=== PATIENT | male | born 1970 | race Caucasian/White ===

== ENCOUNTER 2017-12-01 17:33 | Emergency (ER) | payer SELFPAY ==
[2017-12-01] MEDS ORDERED: chlordiazePOXIDE 25 MG CAP PO ONE ×2 (17:54→22:40)
[2017-12-01] MEDS ORDERED: ONDANSETRON DISINTEGRATING 4 MG TAB PO ONE (17:55)
--- NOTE | 2017-12-01 18:03 | EDPHY ---
General - History Smoking Status: Never smoked Narrative: 1:00 a.m.- [facility] has evaluated the patient for placement. Unfortunately, the patient's ALT and AST are slightly elevated which I attribute to his alcohol use. However, [facility] will not accept the patient with values greater than 200. Thus, the patient cannot be directly accepted. He will need to have labs demonstrating improving liver function. He could possibly return to the emergency room for repeat AST and ALT and if they are less than 200, could be placed in [facility]. However, day that have is provided information for outpatient admission there. We will send the patient home with [facility]. The patient and his are and in agreement with this plan. (Diane Clemens) CHIEF COMPLAINT: Alcohol dependence, wanting detox HISTORY OF PRESENT ILLNESS: The patient presents with his spouse with complaints of wanting detox. He complains of 1 year duration of alcohol abuse and dependency. He says he was a social drinker and with increasing anxiety is in his work life he began drinking more heavily at that time. He has at least 4-5 drinks of vodka per day for the past 1 year. It has been increasing recently and varies. On Monday he was charged with a DUI and made the decision is time for him to stop drinking. However he has been unable to find help. He and his spouse had made multiple phone calls. The ultimately ended up at the crisis Center last night the [facility] this morning. He left the [facility] and walked to [facility] and began drinking again. He last had alcohol 2:30 p.m.. He is here asking for detox. He denies any suicidality. He denies any ingestion of any other substances or drugs. No other associated complaints or modifying factors. REVIEW OF SYSTEMS: Ten systems reviewed and are negative unless otherwise noted in the HPI PCP: None currently. Recently switched insurances and is looking for primary care physician SPECIALISTS: None PAST MEDICAL HISTORY: No significant medical history PAST SURGICAL HISTORY: No recent surgeries SOCIAL HISTORY: Nonsmoker. No drug use. Alcohol as above. 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 Lives in [place] with his spouse FAMILY HISTORY: Noncontributory EXAMINATION General Appearance: Alert, no distress, calm and cooperative Head: normocephalic, atraumatic Eyes: Pupils equal and round, no conjunctival pallor or injection ENT, Mouth: Mucous membranes moist. Airway patent Neck: Normal inspection, supple, non-tender Respiratory: Lungs are clear to auscultation Cardiovascular: Regular rate and rhythm. No murmur Gastrointestinal: Abdomen is soft and nontender Back: non-tender, no bony abnormalities Neurological: GCS 15. Cranial nerves 2-12 grossly intact. A&O, nonfocal, normal gait. Normal [id number]. No dysmetria. No tremor Skin: Warm and dry, no rash. No petechiae or purpura Extremities: Nontender, no pedal edema Psychiatric: Mood and affect normal DIFFERENTIAL DIAGNOSES: Including but not limited to alcohol intoxication, alcohol withdrawal, alcohol dependency, alcoholism MDM: 5:55 p.m. Alcohol dependency with request for detox. The patient is awake and alert. He is not delirious or encephalopathic. He is in no acute distress with vital signs within normal limits. He is a practicing dentist and presents with his spouse. They have made phone calls to attempt inpatient therapy with no success. They were instructed to come here by [facility] for evaluation to be considered for inpatient treatment. Resting comfortably in no acute distress. I have ordered laboratory studies. I will discuss with case management 6:09 p.m. I discussed the case with Jaycee with [facility]. She will come to the emergency department to discuss further. 6:12 p.m. Jaycee is here to evaluate the patient and discuss further. 6:25 p.m. Jaycee with [facility] has briefly visited with the patient. She states that he is wanting inpatient therapy. She says that she will provided mental health evaluation that is necessary for [facility] therapy. 7:25 p.m. I was asked re-evaluated the patient. He is feeling better after the Librium and feels as though he does not warrant inpatient care. I re-evaluated him not a very lengthy discussion, greater than 15 min, regarding the need for detox and ongoing care for his alcohol dependency. He agrees to proceed with mental health evaluation and for the possibility of inpatient care at [facility]. 8:30 p.m. Jaycee has completed her evaluation and disposition is pending. At this time, patient is wanting inpatient therapy and willing to proceed with care at [facility]. 9:15 p.m. Case discussed with Jaycee. She has provided all information to [facility] , and we are awaiting their decision for acceptance. 10:45 p.m. Updated by Jaycee from [facility]. [facility] may have a position available for the patient. We are still waiting to receive there confirmation. At this time Forrest will take over for Jaycee. He will notify me when he hears from [facility]. He is starting to feel somewhat anxious, thus I have ordered more librium 11:50 p.m. I discussed the case with Forrest from [facility]. He informs me that we are still awaiting a final decision from [facility]. I re-evaluated the patient. At this time he was resting comfortably asleep. He has no tremor or shaking. He does not feel anxious at this time. He still wants to proceed with inpatient care. He states that he is very remorseful of his past alcohol abuse and no longer can tolerated. He says that he is ready for inpatient treatment. Still awaiting that decision at this time I will be leaving the emergency department. Should the patient not be accepted to [facility], we have discussed a Librium taper protocol. I printed this prescription and discussed it in detail with the patient and his spouse. I stressed the importance of not taking medication with alcohol or any other substances. I stressed the importance of returning to the ER should he choose to drink alcohol in the interim. But the patient's spouse are comfortable with this. They are pending decision from [facility] at this time. SUPERVISION: Patient was independently examined, but I discussed the case with my secondary supervising physician Dr. Light ([facility]) - Objective Vital Signs: Initial Vital Signs Temperature (C) 98.6 F 12/01/17 17:35 Heart Rate 79 12/01/17 17:35 Respiratory Rate 16 12/01/17 17:35 Blood Pressure 144/99 H 12/01/17 17:35 O2 Sat (%) 97 12/01/17 17:35 O2 Delivery Mode Room Air Allergies/Adverse Reactions: No Known Allergies Allergy (Unverified 12/01/17 17:35) Home Medications: Medication Instructions Recorded chlordiazePOXIDE [Librium 25 mg 25 mg PO TID #6 cap 12/01/17 (*)] Laboratory Results: Laboratory Results 12/01/17 19:00 12/01/17 19:00 Medications Given: Discontinued Medications Chlordiazepoxide (Librium 25 Mg Prepack#6) 1 btl TAKEHOME EDNOW ONE Stop: 12/02/17 00:22 Last Admin: 12/02/17 00:32 Dose: 1 btl Chlordiazepoxide HCl (Librium) 50 mg PO EDNOW ONE Stop: 12/01/17 17:55 Last Admin: 12/01/17 18:04 Dose: 50 mg Chlordiazepoxide HCl (Librium) 25 mg PO EDNOW ONE Stop: 12/01/17 22:41 Last Admin: 12/01/17 22:43 Dose: 25 mg Chlordiazepoxide HCl (Librium) 25 mg PO EDNOW ONE Stop: 12/02/17 00:31 Last Admin: 12/02/17 00:31 Dose: 25 mg Ondansetron HCl (Zofran Odt) 4 mg PO EDNOW ONE Stop: 12/01/17 17:56 Last Admin: 12/01/17 18:04 Dose: 4 mg Departure - Departure Disposition: Home, Routine, Self-Care Clinical Impression: Alcohol withdrawal Qualifiers: Complication of substance-induced condition: uncomplicated Qualified Code(s): F10.230 - Alcohol dependence with withdrawal, uncomplicated Alcohol intoxication Qualifiers: Complication of substance-induced condition: uncomplicated Qualified Code(s): F10.920 - Alcohol use, unspecified with intoxication, uncomplicated Condition: Good Instructions: Chlordiazepoxide (By mouth), Alcohol Intoxication (ED), Abuse of Alcohol (ED), Alcohol Withdrawal (ED) Additional Instructions: 1. Medication as prescribed to completion 2. Do not combine alcohol with the medication at any time 3. ED precautions for any intake of alcohol, shaking, nausea, vomiting or seizure-like activity Referrals: Amisha Ambrose MD [Medical Doctor] - As per Instructions Prescriptions: chlordiazePOXIDE [Librium 25 mg (*)] 25 mg PO TID #6 cap
[2017-12-01 19:13] LABS: PLATELET COUNT 239 10^3/uL (150-400)
[2017-12-01 20:06] VITALS: PULSE 88
[2017-12-01 23:22] VITALS: BP 143/82; RESP 18; TEMP 98.1; O2SAT 95
[2017-12-02] MEDS ORDERED: CHLORDIAZEPOXIDE 25MG PREPK#6 BTL TAKEHOME ONE (00:21)
[2017-12-02] MEDS ORDERED: chlordiazePOXIDE 25 MG CAP PO ONE (00:30)
== END 2017-12-02 00:36 | disposition home or self-care (01) ==
DX: F10.230 Alcohol dependence with withdrawal, uncomplicated (principal)
CPT/HCPCS: 80305; G0480

== ENCOUNTER 2018-01-05 11:03 | Emergency (ER) | payer OTHER ==
--- NOTE | 2018-01-05 11:35 | EDPHY ---
H & P Stated Complaint: increasing stress at work/got dui/ brought in for eval Source: Patient, RN/MD, Old records Exam Limitations: No limitations - Personal History Current Tetanus/Diphtheria Vaccine: Yes - Medical/Surgical History Hx Asthma: No Hx Chronic Respiratory Disease: No Hx Diabetes: No Hx Cardiac Disease: No Hx Renal Disease: No Hx Cirrhosis: No Hx Alcoholism: No Hx HIV/AIDS: No Hx Splenectomy or Spleen Trauma: No Other PMH: etoh abuse - Social History Smoking Status: Never smoked Time Seen by Provider: 01/05/18 11:40 HPI/ROS: HPI: This is a 47 year old male who presents with Chief Complaint: increasing stress at work/got DUI/ brought in for evaluation Location:psych Quality: Alcohol abuse, suicidal ideation Duration: Today Signs and Symptoms: Timing: Acute on chronic Severity: Moderate to severe Context: 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 His behavior became loud and angry. At work, admits to high stress, got really angry and yelled at his co-worker. market research manager called his . He tells me that he has not drank alcohol in 1 month. Lacks impulse control. He then stated that he was going to kill himself. is at wits end with the patient as he continues to drink; last drink this morning. Started seeing Dr. Aida Porter psychiatry outpatient but has only been there once. Patient reports that his inches over acting as usual and that he needs to get home and he is just fine. He reports that he does not want to at this time. During the interview his behavior alternates between calm and cooperative and angry with forceful to home. Modifying Factors: None Comment: ROS: see HPI Constitutional: No fever, no chills, no weight loss Eyes: No blurred vision Respiratory: No shortness of breath, no cough Cardiovascular: No chest pain Gastrointestinal: No nausea, no vomiting, no diarrhea Genitourinary: No dysuria Extremities: No myalgias Neurologic: No weakness, no numbness Skin: No rashes Hematologic: No bruising, no bleeding MEDICAL/SURGICAL/SOCIAL HISTORY: Medical history: Alcohol abuse. Generally healthy. Surgical history: Denies Social history: . Employed. CONSTITUTIONAL: Tidy, well-developed well-nourished adult white male, awake and alert, no obvious distress HEENT: Atraumatic and normocephalic, PERRL, EOMI. Tympanic membranes clear. Oropharynx clear, no exudate and moist pink mucosa. Airway patent. No lymphadenopathy. No meningismus. Cardiovascular: Normal S1/S2, regular rate, regular rhythm, without murmur rub or gallop. PULMONARY/CHEST: Symmetrical and nontender. Clear to auscultation bilaterally. Good air movement. No accessory muscle usage. ABDOMEN: Soft, nondistended, nontender, no rebound, no guarding, no peritoneal signs, no masses or organomegaly. No CVAT. EXTREMITIES: 2/2 pulses, strength 5/5, no deformities, no clubbing, no cyanosis or edema. NEUROLOGICAL: no focal neuro deficits. GCS 15. SKIN: Warm and dry, no erythema. no rash. Good capillary refill. PSYCH: Good eye contact, no flight of ideas, organized thought process, fair insight and judgment, no auditory and visual command hallucinations, + suicidal ideation with a plan, no homicidal ideation, not paranoid (Flavio,Terra) Constitutional: Initial Vital Signs Temperature (C) 36.8 C 01/05/18 11:10 Heart Rate 88 01/05/18 11:10 Respiratory Rate 16 01/05/18 11:10 Blood Pressure 146/109 H 01/05/18 11:10 O2 Sat (%) 99 01/05/18 11:10 O2 Delivery Mode Room Air Allergies/Adverse Reactions: No Known Allergies Allergy (Verified 01/05/18 11:10) Home Medications: Medication Instructions Recorded NK [No Known Home Meds] 01/05/18 Medical Decision Making ED Course/Re-evaluation: Breathalyzer and urine drug screen upon arrival. Called Dr. Aida Porter at [phone] from the [facility] who has seen patient 1 time. I advised that patient is saying all the right things. Dr. Porter spoke with patient via the phone. She reports that he is very manipulative, narcissistic and down spiraling in his behavior. Dr. Porter advised that patient has severe major depression and active suicidal ideation and recommends M1 hold and inpatient treatment. Labs and UDS ordered 1345: Reviewed labs and UDS; positive for benzodiazepines and ethanol serum 64 ; medically clear for mental health evaluation. This patient was seen under the supervision of my secondary supervising physician. I evaluated care for this patient independently. Discussed this patient with Dr. Esteban who did not see the patient. (Candida Muniz) Patient is signed out to me at change of shift by Dr. Esteban. The patient is stable at this time. He is awaiting evaluation. I discussed the case with Psychiatric Services. The patient will be admitted. The patient will be transferred. EMTALA is completed. (Jahaira Willis) Differential Diagnosis: Differential diagnosis includes but is not limited to functional in situational major depression, alcohol abuse, psychosis, suicidal ideation. (Candida Muniz) Other Provider: I have evaluated and participated in the management of this patient. My co- signature indicates that I have reviewed this chart and that I agree with the findings and the plan of care as documented. My personal history and physical findings include: Patient tells me that it is "a mistake for him to be here". He reports recent personal stressors, particularly at work and at home. He made a comment to his air support control officer along the lines of "there is no reason for me to be around" and tells me that she then contacted his , who brought him to the emergency department. He denies suicidality or homicidality. The time of my evaluation he is awake and alert. Heart is regular lungs are clear. Abdomen is soft and nontender. At 3:00 p.m. a mental health evaluation is in process. His care will be transferred to Dr. Willis. (Kristina Esteban) - Data Points Laboratory Results: Laboratory Results 01/05/18 12:40 01/05/18 12:40 Medications Given: Discontinued Medications Lorazepam (Ativan) 1 mg PO EDNOW ONE Stop: 01/05/18 18:05 Last Admin: 01/05/18 18:08 Dose: 1 mg Departure - Departure Disposition: Other Psych, Not [place] Clinical Impression: Suicidal ideations, Alcohol abuse Condition: Good Referrals: NONE *PRIMARY CARE P,. [Primary Care Provider] - As per Instructions
[2018-01-05 12:48] LABS: PLATELET COUNT 285 10^3/uL (150-400)
[2018-01-05 16:00] VITALS: RESP 20
[2018-01-05] MEDS ORDERED: LORazepam 1 MG TAB PO ONE (18:04)
[2018-01-05 20:09] VITALS: BP 160/105; PULSE 65; TEMP 97.9; O2SAT 99
== END 2018-01-05 21:04 ==
PROC: GZ11ZZZ Psychological Tests, Personality and Behavioral (ICD-10-PCS; principal; 2018-01-05)
DX: R45.851 Suicidal ideations (principal); F10.10 Alcohol abuse, uncomplicated
CPT/HCPCS: 80305; G0480